=== PATIENT | male | born 1965 | race Caucasian/White ===

== ENCOUNTER 2021-05-13 06:04 | Inpatient (IN) ==
[~2021-05-13 06:04] MED LIST: Buffered Lidocaine 1% SYRIN 1 ml INTRADERM ONE; Lactated Ringers 1000 ml BAG 1,000 ML IV SCH
[2021-05-13] MEDS ORDERED: ceFAZolin 2 GM in NS PREMIX 2 GM/100 ML BAG IVPB ONE (06:30)
[2021-05-13] MEDS ORDERED: Bacitracin OINTMENT TUBE ONE (07:07)
[2021-05-13] MEDS ORDERED: Lidocaine 1% w EPI 1:200,000 SDV 30 ML VIAL ONE (07:07)
[2021-05-13] MEDS ORDERED: Thrombin 5,000 UNITS 1 APPLIC KIT - topical use - TOPICAL ONE (07:07)
[2021-05-13] MEDS ORDERED: fentaNYL 250 mcg/5 ml 50 MCG/ML 5 ml VIAL (250 MCG) ONE (07:22)
[2021-05-13] MEDS ORDERED: Lidocaine 2% PF 5 ML VIAL ONE (07:22)
[2021-05-13] MEDS ORDERED: Midazolam 2 mg/2 ml VIAL 1 mg/ml 2 ml VIAL (2 mg) ONE (07:22)
[2021-05-13] MEDS ORDERED: Propofol 10 MG/ML 20 ML BTL ONE (07:22)
[2021-05-13] MEDS ORDERED: Rocuronium 50 mg VIAL 10 mg/ml 5 ml VIAL (50 mg) ONE ×3 (07:23→12:01)
[2021-05-13] MEDS ORDERED: Ketamine HCL 50 mg/ml 10 ml VIAL (500 MG) ONE (07:31)
[2021-05-13] MEDS ORDERED: Naloxone 0.4 mg VIAL 0.4 mg/ml 1 ml VIAL IV PRN ×2 (07:38→12:27)
[2021-05-13] MEDS ORDERED: diPHENhydraMINE IV 50 MG/ML 1 ml VIAL (BENADRYL) IV PRN (07:38)
[2021-05-13] MEDS ORDERED: Prochlorperazine 5 mg/ml 2 ml VIAL (10 mg) IV PRN (07:38)
[2021-05-13] MEDS ORDERED: ceFAZolin VIAL VIAL ONE (07:41)
[2021-05-13] MEDS ORDERED: Dexamethasone IV 4 MG/ML VIAL 1 ml VIAL ONE ×2 (08:05→12:44)
[2021-05-13] MEDS ORDERED: Gelfoam 12-7 ADSORBABL SPONGE ONE (08:09)
[2021-05-13] MEDS ORDERED: Gelfoam Sponge SIZE 100 SPONGE ONE (08:09)
[2021-05-13] MEDS ORDERED: Levalbuterol HFA INHALER MDI ONE (08:09)
[2021-05-13] MEDS ORDERED: HYDROmorphone 1 MG/1 ML SYRINGE ONE ×2 (08:21→11:34)
[2021-05-13] MEDS ORDERED: Ondansetron 4 mg VIAL 2 MG/ML 2 ml VIAL IV PRN (11:16)
[2021-05-13] MEDS ORDERED: Magnesium Hydroxide LIQ 30 ML UDC PO PRN (11:16)
[2021-05-13] MEDS: HYDROmorphone 1 MG/1 ML SYRINGE IV PRN ×5 (11:35→11:58)
[2021-05-13] MEDS ORDERED: Ondansetron 4 mg VIAL 2 MG/ML 2 ml VIAL ONE ×2 (11:39→13:55)
[2021-05-13] MEDS ORDERED: fentaNYL 100 mcg/2 ml 50 MCG/ML VIAL ONE (12:30)
[2021-05-13] MEDS: fentaNYL 100 mcg/2 ml 50 MCG/ML VIAL IV PRN ×4 (12:32→12:39)
[2021-05-13] MEDS ORDERED: EPHEDrine (Pressors) 50 MG/ML VIAL ONE (12:53)
[2021-05-13] MEDS ORDERED: Phenylephrine IV 10 MG/ML 1 ml VIAL ONE (13:13)
[2021-05-13] MEDS: Lactated Ringers 1000 ml BAG 1,000 ML IV SCH (14:10)
[2021-05-13] MEDS: HYDROcodone/ACETAMIN 5/325 mg TAB PO PRN ×3 (15:49→23:58)
[2021-05-13] MEDS ORDERED: Al Hydrox/Mg Hydrox/Simet LIQ 30 ML UDC ONE (18:41)
[2021-05-13] MEDS ORDERED: Al Hydrox/Mg Hydrox/Simet LIQ 30 ML UDC PO PRN (18:52)
[2021-05-14] MEDS: Lactated Ringers 1000 ml BAG 1,000 ML IV SCH (03:37)
[2021-05-14] MEDS: HYDROcodone/ACETAMIN 5/325 mg TAB PO PRN ×3 (03:38→12:30)
[2021-05-14] MEDS ORDERED: CMCS:OMEGA-3 FATTY ACID 1000 mg(NF) PO SCH (09:00)
[2021-05-14] MEDS ORDERED: CMCS:Meloxicam 7.5 mg TAB (NF) PO SCH (09:00)
[2021-05-14 11:30] VITALS: BP 108/64
[2021-05-15] MEDS ORDERED: Flu vaccine *QUAD* 2021-22* 0.5 ML SYRINGE IM ONE (09:00)
== END 2021-05-14 13:00 | disposition home or self-care (01) | DRG 304 ==
LOC: AA 06:04 → SSU 13:23
PROVIDERS: ADMIT Neurological Surgery; ATTEND Neurological Surgery
PROC: O.NEPLF (2021-05-13 07:30)

== ENCOUNTER 2023-11-07 11:12 | Inpatient (IN) ==
[2023-11-07] MEDS: Morphine 4 MG/ML VIAL (1 ml) IV ONE ×2 (12:30→16:23)
[2023-11-07] MEDS: Lactated Ringers 1000 ml BAG 1,000 ML IV ONE (12:30)
[2023-11-07 12:35] LABS: ABS Lymphocytes 1.6 10^3/uL (1.0-4.8); ABS Monocytes 1.2 10^3/uL (0.0-1.1); ABS Neutrophils 14.4 10^3/uL (1.5-7.6); ABS Nucleated RBC 0.01 10^3/ul; Eosinophil % 0.1 %; Hematocrit 41.9 % (38-53); Hemoglobin 14.4 g/dL (13.2-16.3); Lymphocyte % 9.3 %; Mean Corpuscular Hemoglobin 29.2 pg (27-33); Mean Corpuscular Hgb Conc 34.3 g/dL (31-36); Mean Corpuscular Volume 85.3 fL (80-97); Mean Platelet Volume 7.1 fL (7.5-11.2); Nucleated Red Blood Cells % 0.1 %/100WBC (0.0-0.8); Platelet Count 245 10^3/uL (150-450); Red Blood Count 4.91 10^6/uL (4.06-5.63); Red Cell Distribution Width 13.3 % (12-17); White Blood Count 17.3 10^3/uL (3.6-10.2)
[2023-11-07 12:50] LABS: Activated Partial Thrombo Time 30.4 seconds (26.0-38.0); INR 1.16 (0.83-1.13)
[2023-11-07] MEDS: Piperacillin/Tazobac 3.375 BAG 3.375 GM/100 ML BAG IV ONE (12:52)
[2023-11-07 14:10] LABS: High Sensitivity Troponin 1 Hr 5 pg/mL (<20)
[2023-11-07 14:12] LABS: Albumin 4.2 g/dL (3.2-5.2); Albumin/Globulin Ratio 1.6 (1-3); C Reactive Protein 266.15 mg/L (<8.01); Calcium 9.3 mg/dL (8.6-10.3); Creatinine, Serum 1.07 mg/dL (0.67-1.17); Globulin 2.7 g/dL (2-4); Total Bilirubin 0.7 mg/dL (0.2-1.0); Total Protein 6.9 g/dL (6.4-8.9); eGFR CKD-EPI 81.4 (>60)
[2023-11-07] MEDS: Iohexol 300 (CONTRAST) 10 ML SDV IV ONE (15:04)
[2023-11-07 15:42] LABS: Urine Appearance Clear; Urine Bilirubin Negative (Negative); Urine Blood Negative (Negative); Urine Color Yellow; Urine Glucose Negative (Negative); Urine Ketones 1+ (Negative); Urine Nitrite Negative (Negative); Urine Protein Trace (Negative); Urine Urobilinogen Negative (Negative)
[2023-11-07] MEDS: Acetaminophen IV 1 GM/100ML 1,000 MG/100 ML BAG IV ONE (16:23)
[2023-11-07] MEDS ORDERED: Ondansetron 4 mg VIAL 2 MG/ML 2 ml VIAL IV PRN (17:08)
[2023-11-07] MEDS ORDERED: HYDROmorphone 0.5 MG/0.5 ML SYRINGE IV SLOW PU PRN (17:18)
[2023-11-07] MEDS ORDERED: Nicotine Lozenge mini 2 MG LOZNG.MINI MT PRN (17:27)
[2023-11-07] MEDS ORDERED: Nicotine GUM 4MG FRUIT FLAVOR PO PRN (17:36)
[2023-11-07] MEDS: D5W 1/2 NS KCl 20 meq 1000 ml 1,000 ML IV SCH (18:35)
[2023-11-07] MEDS: Piperacillin/Tazobac 3.375 BAG 3.375 GM/100 ML BAG IV SCH (18:35)
[2023-11-07] MEDS: Nicotine PATCH 21 MG/24 HR PATCH TRANSDERM ONE (18:35)
[2023-11-07] MEDS: Enoxaparin 40 MG/0.4 ML SYR SUBCUT SCH (21:25)
[2023-11-08] MEDS: Piperacillin/Tazobac 3.375 BAG 3.375 GM/100 ML BAG IV SCH (01:39)
[2023-11-08 08:19] LABS: ABS Eosinophils 0.1 10^3/uL (0.0-0.5); ABS Lymphocytes 1.6 10^3/uL (1.0-4.8); Eosinophil % 1.4 %; Hematocrit 36.5 % (38-53); Hemoglobin 12.5 g/dL (13.2-16.3); Lymphocyte % 15.2 %; Mean Corpuscular Hgb Conc 34.1 g/dL (31-36); Mean Corpuscular Volume 84.9 fL (80-97); Mean Platelet Volume 6.8 fL (7.5-11.2); Platelet Count 221 10^3/uL (150-450); Red Cell Distribution Width 13.1 % (12-17); White Blood Count 10.8 10^3/uL (3.6-10.2)
[2023-11-08 08:35] LABS: Calcium 8.4 mg/dL (8.6-10.3); Creatinine, Serum 1.08 mg/dL (0.67-1.17); Potassium 4.1 mmol/L (3.5-5.0); eGFR CKD-EPI 80.5 (>60)
[2023-11-09 06:21] LABS: ABS Eosinophils 0.2 10^3/uL (0.0-0.5); ABS Lymphocytes 1.9 10^3/uL (1.0-4.8); ABS Monocytes 0.8 10^3/uL (0.0-1.1); ABS Neutrophils 6.1 10^3/uL (1.5-7.6); ABS Nucleated RBC 0.01 10^3/ul; Eosinophil % 2.1 %; Hematocrit 36.9 % (38-53); Hemoglobin 12.7 g/dL (13.2-16.3); Lymphocyte % 20.5 %; Mean Corpuscular Hemoglobin 29.2 pg (27-33); Mean Corpuscular Hgb Conc 34.4 g/dL (31-36); Mean Corpuscular Volume 84.7 fL (80-97); Mean Platelet Volume 7.1 fL (7.5-11.2); Nucleated Red Blood Cells % 0.1 %/100WBC (0.0-0.8); Platelet Count 248 10^3/uL (150-450); Red Blood Count 4.36 10^6/uL (4.06-5.63); Red Cell Distribution Width 13.3 % (12-17)
[2023-11-09 06:44] LABS: Calcium 8.7 mg/dL (8.6-10.3); Creatinine, Serum 1.02 mg/dL (0.67-1.17); Potassium 4.4 mmol/L (3.5-5.0); eGFR CKD-EPI 86.3 (>60)
[2023-11-09] MEDS: D5W 1/2 NS KCl 20 meq 1000 ml 1,000 ML IV SCH (09:06)
[2023-11-11 05:29] LABS: ABS Basophils 0.1 10^3/uL (0.0-0.1); ABS Eosinophils 0.3 10^3/uL (0.0-0.5); ABS Lymphocytes 2.6 10^3/uL (1.0-4.8); ABS Neutrophils 6.1 10^3/uL (1.5-7.6); Eosinophil % 2.6 %; Hematocrit 36.8 % (38-53); Hemoglobin 12.6 g/dL (13.2-16.3); Lymphocyte % 26.2 %; Mean Corpuscular Hemoglobin 28.9 pg (27-33); Mean Corpuscular Hgb Conc 34.3 g/dL (31-36); Mean Corpuscular Volume 84.4 fL (80-97); Mean Platelet Volume 6.6 fL (7.5-11.2); Platelet Count 304 10^3/uL (150-450); Red Blood Count 4.36 10^6/uL (4.06-5.63); Red Cell Distribution Width 13.2 % (12-17)
[2023-11-11 05:45] LABS: Calcium 8.6 mg/dL (8.6-10.3); Creatinine, Serum 1.25 mg/dL (0.67-1.17); Potassium 4.4 mmol/L (3.5-5.0); eGFR CKD-EPI 67.6 (>60)
[2023-11-11 10:53] VITALS: BP 117/73
== END 2023-11-11 13:00 | disposition home or self-care (01) | DRG 244 ==
LOC: ED 11:12 → EDHOLD 17:08 → SSU 18:02
PROVIDERS: ADMIT Surgery; ATTEND Surgery